=== PATIENT | female | born 1950 | race Caucasian/White ===

== ENCOUNTER 2021-05-13 14:29 | Emergency (ER) | payer MEDICARE, OTHER ==
[2021-05-13] MEDS ORDERED: Morphine 2 MG/ML SYRINGE IVPUSH ONE (15:25)
[2021-05-13] MEDS ORDERED: Aspirin 81 MG Tab.Chew PO ONE (15:25)
[2021-05-13] MEDS ORDERED: Ondansetron 4 MG/2 ML SDV IVPUSH ONE (15:25)
[2021-05-13] MEDS ORDERED: Sodium Chloride 0.9% 10 ML Syringe FLUSH PRN (15:26)
--- NOTE | 2021-05-13 15:46 | EDM.PDOC ---
ED HPI GENERAL MEDICAL PROBLEM - General Chief Complaint: Chest Pain Stated Complaint: CHEST PAIN Time Seen by Provider: 05/13/21 14:42 Source of Information: Reports: Patient, RN Notes Reviewed History Limitations: Reports: No Limitations - History of Present Illness INITIAL COMMENTS - FREE TEXT/NARRATIVE: Patient is a 70-year-old female presenting to the emergency department with complaints of intense midsternal chest pain. Reports that she woke up at 2 AM with the pain. She vomited around 4:00. She then later attempted to drink a mixture of different ingredients including vinegar to treat possible heartburn and vomited after this. She denies any shortness of breath or diaphoresis. She has no history of CO. Pain does not radiate to her neck or shoulder. Reports that about a year ago, she had a similar occurrence after eating a large breakfast, however that resolved after a few hours. Mid-Sternal Chest Pain Score (Numeric/FACES): 9 - Related Data Allergies Allergy/AdvReac Type Severity Reaction Status Date / Time latex Allergy Blisters Verified 05/13/21 15:00 nickel Allergy Irritabilit Verified 05/13/21 15:00 y Home Meds: Home Meds . [No Known Home Meds] 05/13/21 [History] ED ROS GENERAL - Review of Systems Review Of Systems: See Below Constitutional: Reports: No Symptoms HEENT: Reports: No Symptoms Respiratory: Reports: No Symptoms. Denies: Shortness of Breath, Pleuritic Chest Pain, Cough Cardiovascular: Reports: Chest Pain. Denies: Lightheadedness, Palpitations, Syncope Endocrine: Reports: No Symptoms GI/Abdominal: Reports: Vomiting. Denies: Abdominal Pain, Diarrhea : Reports: No Symptoms Musculoskeletal: Reports: No Symptoms Skin: Reports: No Symptoms Neurological: Reports: No Symptoms Psychiatric: Reports: No Symptoms Hematologic/Lymphatic: Reports: No Symptoms Immunologic: Reports: No Symptoms ED EXAM, GENERAL - Physical Exam Exam: See Below General Appearance: Alert, WD/WN, No Apparent Distress Respiratory/Chest: No Respiratory Distress, Lungs Clear, Normal Breath Sounds, No Accessory Muscle Use, Chest Non-Tender Cardiovascular: Normal Peripheral Pulses, Regular Rate, Rhythm, No Edema, No Gallop, No JVD, No Murmur, No Rub GI/Abdominal: Normal Bowel Sounds, Soft, No Organomegaly, No Distention, No Abnormal Bruit, No Mass, Tender (mild epigastric tenderness) Neurological: Alert, Oriented, CN II-XII Intact, Normal Cognition, Normal Gait, Normal Reflexes, No Motor/Sensory Deficits Psychiatric: Normal Affect, Normal Mood Skin Exam: Warm, Dry, Intact, Normal Color, No Rash #1 Interpretation EKG Date: 05/13/21 Time: 14:45 Rhythm: NSR Rate (Beats/Min): 68 [place]: Normal P-Wave: Present QRS: Normal ST-T: Normal QT: Normal Course - Vital Signs Last Recorded V/S: Last Vital Signs Temp 97.7 F 05/13/21 14:43 Pulse 73 05/13/21 14:43 Resp 10 L 05/13/21 14:43 BP 162/77 H 05/13/21 14:43 Pulse Ox 98 05/13/21 14:43 - Orders/Labs/Meds Labs: Laboratory Tests 05/13/21 05/13/21 05/13/21 Range/Units 15:58 15:58 15:58 WBC (3.98-10.04) K/mm3 RBC (3.98-5.22) M/mm3 Hgb (11.2-15.7) gm/dl Hct (34.1-44.9) % MCV (79.4-94.8) fl MCH (25.6-32.2) pg MCHC (32.2-35.5) g/dl RDW Std Deviation (36.4-46.3) fL Plt Count (182-369) K/mm3 MPV (9.4-12.3) fl Neut % (Auto) (34.0-71.1) % Lymph % (Auto) (19.3-51.7) % [place] % (Auto) (4.7-12.5) % Eos % (Auto) (0.7-5.8) Baso % (Auto) (0.1-1.2) % Neut # (Auto) (1.56-6.13) K/mm3 Lymph # (Auto) (1.18-3.74) K/mm3 [place] # (Auto) (0.24-0.36) K/mm3 Eos # (Auto) (0.04-0.36) K/mm3 Baso # (Auto) (0.01-0.08) K/mm3 PT 10.5 (9.7-12.0) SECONDS INR 0.98 APTT 26.2 (21.7-31.4) SECONDS D-Dimer, Quantitative 0.52 H (0.19-0.50) mg/L Sodium 139 (136-145) mEq/L Potassium 3.9 (3.5-5.1) mEq/L Chloride 101 (98-107) mEq/L Carbon Dioxide 28 (21-32) mEq/L Anion Gap 13.9 (5-15) BUN 13 (7-18) mg/dL Creatinine 0.9 (0.55-1.02) mg/dL Est Cr Clr Drug Dosing 59.05 mL/min Estimated GFR (MDRD) > 60 (>60) mL/min BUN/Creatinine Ratio 14.4 (14-18) Glucose 138 H (70-99) mg/dL Calcium 9.0 (8.5-10.1) mg/dL Magnesium 1.8 (1.8-2.4) mg/dL Total Bilirubin 1.2 H (0.2-1.0) mg/dL AST 17 (15-37) U/L ALT 29 (14-59) U/L Alkaline Phosphatase 76 (46-116) U/L Troponin I < 0.017 (0.00-0.056) ng/mL NT-Pro-B Natriuret Pep 416 H (0-125) pg/mL Total Protein 7.6 (6.4-8.2) g/dl Albumin 3.7 (3.4-5.0) g/dl Globulin 3.9 gm/dL Albumin/Globulin Ratio 1.0 (1-2) 05/13/21 Range/Units 15:58 WBC 11.99 H (3.98-10.04) K/mm3 RBC 4.86 (3.98-5.22) M/mm3 Hgb 13.3 (11.2-15.7) gm/dl Hct 41.4 (34.1-44.9) % MCV 85.2 D (79.4-94.8) fl MCH 27.4 (25.6-32.2) pg MCHC 32.1 L (32.2-35.5) g/dl RDW Std Deviation 43.9 (36.4-46.3) fL Plt Count 224 (182-369) K/mm3 MPV 10.7 (9.4-12.3) fl Neut % (Auto) 82.7 H (34.0-71.1) % Lymph % (Auto) 11.3 L (19.3-51.7) % [place] % (Auto) 5.7 (4.7-12.5) % Eos % (Auto) 0 L (0.7-5.8) Baso % (Auto) 0.1 (0.1-1.2) % Neut # (Auto) 9.92 H (1.56-6.13) K/mm3 Lymph # (Auto) 1.36 (1.18-3.74) K/mm3 [place] # (Auto) 0.68 H (0.24-0.36) K/mm3 Eos # (Auto) 0.00 L (0.04-0.36) K/mm3 Baso # (Auto) 0.01 (0.01-0.08) K/mm3 PT (9.7-12.0) SECONDS INR APTT (21.7-31.4) SECONDS D-Dimer, Quantitative (0.19-0.50) mg/L Sodium (136-145) mEq/L Potassium (3.5-5.1) mEq/L Chloride (98-107) mEq/L Carbon Dioxide (21-32) mEq/L Anion Gap (5-15) BUN (7-18) mg/dL Creatinine (0.55-1.02) mg/dL Est Cr Clr Drug Dosing mL/min Estimated GFR (MDRD) (>60) mL/min BUN/Creatinine Ratio (14-18) Glucose (70-99) mg/dL Calcium (8.5-10.1) mg/dL Magnesium (1.8-2.4) mg/dL Total Bilirubin (0.2-1.0) mg/dL AST (15-37) U/L ALT (14-59) U/L Alkaline Phosphatase (46-116) U/L Troponin I (0.00-0.056) ng/mL NT-Pro-B Natriuret Pep (0-125) pg/mL Total Protein (6.4-8.2) g/dl Albumin (3.4-5.0) g/dl Globulin gm/dL Albumin/Globulin Ratio (1-2) Meds: Medications Discontinued Medications Generic Name Dose Route Start Last Admin Trade Name Belkis PRN Reason Stop Dose Admin Hydrocodone Bitart/Acetaminophen 1 tab 05/13/21 16:07 05/13/21 16:13 Acetaminophen/Hydrocodone 325-5 Mg Tab PO 05/13/21 16:08 1 tab ONETIME ONE Administration Aspirin 324 mg 05/13/21 15:25 05/13/21 16:13 Aspirin 81 Mg Tab.Chew PO 05/13/21 15:26 324 mg ONETIME ONE Administration Al Hydroxide/Mg Hydroxide 30 0 ml 05/13/21 17:11 05/13/21 17:55 ml/ Lidocaine HCl 15 ml PO 05/13/21 17:12 45 ml ONETIME ONE Administration Morphine Sulfate 2 mg 05/13/21 15:25 05/13/21 16:07 Morphine 2 Mg/Ml Syringe IVPUSH 05/13/21 15:26 Not Given ONETIME ONE Ondansetron HCl 4 mg 05/13/21 15:25 05/13/21 16:08 Ondansetron 4 Mg/2 Ml Sdv IVPUSH 05/13/21 15:26 Not Given ONETIME ONE Sodium Chloride 10 ml 05/13/21 15:26 Sodium Chloride 0.9% 10 Ml Syringe FLUSH ASDIRECTED PRN Keep Vein Open - Re-Assessments/Exams Free Text/Narrative Re-Assessment/Exam: Patient is a 70-year-old female presenting to the emergency department with complaints of epigastric in low midsternal chest pain that began around 2 AM. She did vomit x2. Reports that she has sensation of acid reflux in her throat. I suspect this is GI in nature, but I have ordered cardiac work-up. I will give her aspirin, Zofran, and morphine for pain. 05/13/21 16:08 I been notified by nursing staff that patient is refusing IV insertion. I will give her a [place] for pain instead of the morphine. 05/13/21 17:21 Hematology is grossly unremarkable. D-dimer does mildly elevated 0.52, however when adjusted for age this is normal. Troponin is undetectable. EKG shows normal sinus rhythm at 68. Chest x-ray is normal. Patient's pain has improved immensely. She reports that she has been belching quite a bit. We will give her a GI cocktail and discharge her home. Recommend using Tums or Maalox as needed at home. Also discussed Prilosec if this becomes an ongoing issue. She verbalized understanding. Discharge instructions as documented. Departure - Departure Time of Disposition: 17:22 Disposition: Home, Self-Care 01 Condition: Good Clinical Impression: Atypical chest pain Instructions: Nonspecific Chest Pain, Adult Referrals: PCP,None [Ordering Only Provider] - Forms: ED Department Discharge Additional Instructions: You were seen in the emergency department for chest pain that began early this morning. Work-up included blood work, EKG of your heart, chest x-ray. Results of your work-up were found to be normal. You are not having a heart attack. Cause of your symptoms is likely related to acid reflux. While in the ER, you received a GI cocktail. Recommend using Maalox at home for ongoing symptoms. If this becomes an ongoing issue, you may consider using Prilosec each morning. If you experience any worsening symptoms or develop any new symptoms of concern, please do not hesitate to return to the emergency department for reevaluation. Sepsis Event Note (ED) - Evaluation Sepsis Screening Result: No Definite Risk
[2021-05-13] MEDS ORDERED: Acetaminophen/HYDROcodone 325-5 MG Tab PO ONE (16:07)
[2021-05-13] MEDS ORDERED: Alum Hydrox/Mag Hydrox/Simeth 30 ML, Lidocaine 2% 15 ML PO ONE ×2 (17:11)
--- NOTE | 2021-05-14 07:40 | CR ---
Chest: 2 views of the chest were obtained. Comparison: No prior chest imaging is available. Heart size is normal. Tortuous thoracic aorta is seen. Lungs are clear with no acute parenchymal change. Scattered disc space narrowing is seen within the spine with scattered endplate osteophytes. Impression: 1. Findings as noted above. 2. Nothing acute is seen. Diagnostic code #2
== END 2021-05-13 18:40 | disposition home or self-care (01) ==
LOC: JD.ED 14:29
DX: R07.2 Precordial pain (principal); R07.89 Other chest pain; Z91.040 Latex allergy status; Z91.09 Other allergy status, other than to drugs and biological substances
CPT/HCPCS: 36415; 71046; 80053; 83735; 83880; 84484; 85025; 85379; 85610; 85730; 93005; 99285; A9270; 93010; 99284